=== PATIENT | female | born 1980 | race American Indian/Alaskan Native ===

== ENCOUNTER 2017-06-29 08:05 | Outpatient (CLI) | payer MEDICAID ==
--- NOTE | 2017-06-30 09:05 | Magnetic Resonance Report ---
MRI RIGHT KNEE WITHOUT CONTRAST: 06/29/17 CLINICAL: Right knee pain. ACL tear. TECHNIQUE: Sagittal proton density, sagittal T2 fat sat, coronal T1, coronal and axial proton density fat sat, sagittal gradient T2*sequences and sagittal T2 thin section millimeter thick sequences on a 1.5 Jenn magnet. FINDINGS: Complete tear of the anterior cruciate ligament. Fibers are visible at the anterior attachment but no posterior fibers are visible. The posterior cruciate ligament is intact. Complex tear and degeneration of the posterior horn of the lateral meniscus which is best imaged on the sagittal proton density and T2*sequences. Full-thickness defects in the lateral femoral cartilage and subchondral signal change in the lateral femoral condyle at the torn posterior horn of the meniscus. Additional subchondral defects and cartilage thinning at the anteromedial aspect of the lateral femoral condyle. The medial meniscus is intact. Intact collateral ligaments. The posterolateral corner structures including the popliteus tendon are intact. Chondromalacia of patellae with abnormal signal and thinning of the medial patellar cartilage. The patellar tendon and retinaculum are intact. Small knee joint effusion with no loose bodies identified in the joint space. No popliteal cyst. IMPRESSION: 1. Chronic complete ACL tear. 2. Chronic complex tear posterior horn lateral meniscus. 3. Cartilage thinning and osteochondral defects of the lateral femoral condyle. 4. Small knee joint effusion. 5. No loose bodies identified in the joint space. 6. Mild chondromalacia patellae.
== END 2017-06-29 08:06 | disposition home or self-care (01) ==
LOC: MRI 08:05
PROVIDERS: ATTEND General Practice
DX: S83.511A Sprain of anterior cruciate ligament of right knee, initial encounter (principal); S83.281A Other tear of lateral meniscus, current injury, right knee, initial encounter; M22.41 Chondromalacia patellae, right knee; X58.XXXA Exposure to other specified factors, initial encounter; Y93.89 Activity, other specified; Y92.89 Other specified places as the place of occurrence of the external cause; Y99.8 Other external cause status
CPT/HCPCS: 73721

== ENCOUNTER 2017-09-06 07:08 | Outpatient (CLI) | payer MEDICAID ==
--- NOTE | 2017-09-06 09:01 | Ultrasound Report ---
ULTRASOUND ABDOMEN COMPLETE: TECHNIQUE: Transabdominal ultrasound with color Doppler interrogation. HISTORY: abdominal pain. COMPARISON: none. FINDINGS: LIVER: Normal. BILIARY SYSTEM: Cholecystectomy has been performed. No biliary dilatation. The CBD measures 4 mm. PANCREAS: Normal. SPLEEN: Normal. 9.2 cm in length. KIDNEYS: Normal. AORTA/IVC: Normal. ASCITES: None. IMPRESSION: Cholecystectomy. Otherwise, unremarkable abdominal sonogram.
== END 2017-09-06 07:09 | disposition home or self-care (01) ==
LOC: US 07:08
PROVIDERS: ATTEND Surgery
DX: R10.84 Generalized abdominal pain (principal); Z90.49 Acquired absence of other specified parts of digestive tract
CPT/HCPCS: 76700

== ENCOUNTER 2017-12-08 11:00 | Emergency (ER) | payer MEDICAID ==
[2017-12-08] MEDS ORDERED: ASPIRIN PO ONE (11:27)
[2017-12-08 11:48] LABS: Basophils % (Auto) 0.3 % (0.0-1.8); Eosinophils # (Auto) 0.1 K/mm3 (0.0-0.4); Eosinophils % (Auto) 2.2 % (0.0-4.3); Hematocrit 26.9 % (30.3-42.9); Hemoglobin 8.4 gm/dl (10.1-14.3); Lymphocytes % (Auto) 32.9 % (13.4-35.0); Mean Corpuscular HGB Conc 31 % (30-34); Mean Corpuscular Hemoglobin 22 pg (28-32); Mean Corpuscular Volume 70 fl (79-97); Monocytes # (Auto) 0.5 K/mm3 (0.0-0.8); Monocytes % (Auto) 8.4 % (0.0-7.3); Platelet Count 371 K/mm3 (140-440); Red Blood Count 3.84 M/mm3 (3.65-5.03)
[2017-12-08 12:05] LABS: BUN/Creatinine Ratio 11; Blood Urea Nitrogen 9 mg/dL (7-17); Calcium 8.9 mg/dL (8.4-10.2); Hemolysis Index 2
--- NOTE | 2017-12-08 12:09 | Emergency Department Report ---
ED Chest Pain HPI - General Chief Complaint: Chest Pain Time Seen by Provider: 12/08/17 12:09 Source: patient Mode of arrival: Wheelchair Limitations: No Limitations - History of Present Illness Initial Comments: Patient c/o chest pain and shortness of breath after exercising on a treadmill for rehabilitation for her knee surgery. Complaint: chest pain -: Sudden, This morning Onset: during exertion Pain Location: substernal Pain Radiation: none Severity: moderate Severity scale (0 -10): 5 Quality: sharp Consistency: now resolved Improves With: rest Worsens With: movement Context: recent surgery re: dyspnea Treatments Prior to Arrival: none Aspirin use within the Past 7 Days: (0) No - Related Data On Oral Contraceptives: No Previous Rx's Medication Instructions Recorded Last Taken Type Docusate Sodium [Colace] 100 mg PO BID #60 capsule 12/08/17 Unknown Rx Ferrous Sulfate [Feosol 325 MG tab] 325 mg PO BID #60 tablet 12/08/17 Unknown Rx Allergies Allergy/AdvReac Type Severity Reaction Status Date / Time codeine Allergy Hives Unverified 06/29/17 08:06 Heart Score - HEART Score History: Slightly suspicious EKG: Normal Age: < 45 Risk factors: No known risk factors Troponin: < normal limit HEART Score: 0 - Critical Actions Critical Actions: 0-3 pts:0.9-1.7%risk of adverse cardiac event.Candidate for discharge ED Review of Systems ROS: Stated complaint: Other details as noted in HPI Comment: All other systems reviewed and negative Constitutional: denies: chills, fever Eyes: denies: eye pain ENT: denies: ear pain Respiratory: shortness of breath. denies: cough, orthopnea Cardiovascular: chest pain, palpitations, dyspnea on exertion Endocrine: no symptoms reported Gastrointestinal: denies: abdominal pain, nausea, vomiting, diarrhea Genitourinary: denies: urgency, dysuria, frequency Musculoskeletal: denies: back pain, joint swelling Skin: denies: rash, lesions, change in color Neurological: denies: headache, weakness, numbness, paresthesias Psychiatric: denies: anxiety, depression Hematological/Lymphatic: denies: easy bleeding, easy bruising ED Past Medical Hx - Past Medical History Hx Hypertension: No Hx CVA: No Hx Diabetes: No Hx Renal Disease: No Hx Arthritis: No Hx Seizures: No Hx Asthma: No - Surgical History Hx Pacemaker: No - Social History Smoking Status: Never Smoker - Medications Home Medications: Home Medications Medication Instructions Recorded Confirmed Last Taken Type Docusate Sodium [Colace] 100 mg PO BID #60 capsule 12/08/17 Unknown Rx Ferrous Sulfate [Feosol 325 MG tab] 325 mg PO BID #60 tablet 12/08/17 Unknown Rx ED Physical Exam - General Limitations: No Limitations General appearance: alert, anxious - Head Head exam: Present: atraumatic, normocephalic, normal inspection - Eye Eye exam: Present: PERRL, EOMI, other (Pale conjunctivae) Pupils: Present: normal accommodation - ENT ENT exam: Present: normal exam, normal orophraynx, mucous membranes moist - Neck Neck exam: Present: normal inspection, full ROM. Absent: tenderness - Respiratory Respiratory exam: Present: normal lung sounds bilaterally. Absent: respiratory distress, wheezes, rales, rhonchi - Cardiovascular Cardiovascular Exam: Present: regular rate, normal rhythm, normal heart sounds - GI/Abdominal GI/Abdominal exam: Present: soft, normal bowel sounds. Absent: distended, tenderness, guarding, rebound - Extremities Exam Extremities exam: Present: normal inspection, full ROM, normal capillary refill. Absent: tenderness - Back Exam Back exam: Present: normal inspection, full ROM. Absent: tenderness - Neurological Exam Neurological exam: Present: alert, oriented X3, CN II-XII intact - Psychiatric Psychiatric exam: Present: normal affect, normal mood, anxious - Skin Skin exam: Present: warm, dry, intact, normal color ED Course Vital Signs 12/08/17 12/08/17 12/08/17 11:05 11:16 11:17 Temperature 98.0 F Pulse Rate 79 79 71 Respiratory 16 19 18 Rate Blood Pressure 96/54 Blood Pressure 96/54 [Left] O2 Sat by Pulse 98 98 99 Oximetry 12/08/17 11:22 Temperature Pulse Rate Respiratory 18 Rate Blood Pressure Blood Pressure [Left] O2 Sat by Pulse 99 Oximetry ARON score - Aron Score Age > 65: (0) No Aspirin use within the Past 7 Days: (0) No 3 or more CAD Risk Factors: (0) No 2 or more Angina events in past 24 hrs: (0) No Known CAD with more than 50% Stenosis: (0) No Elevated Cardiac Markers: (0) No ST Deviation Greater than 0.5mm: (0) No ARON Score: 0 ED Medical Decision Making - Lab Data Result diagrams: 12/08/17 11:37 12/08/17 11:37 - EKG Data -: EKG Interpreted by Me EKG shows normal: sinus rhythm Rate: normal (79) - EKG Data When compared to previous EKG there are: previous EKG unavailable Interpretation: nonspecific ST-T wave veronique, other (No STEMI) - Radiology Data Radiology results: report reviewed, image reviewed - Medical Decision Making Chest Pain. Anxiety. Critical care attestation.: If time is entered above; I have spent that time in minutes in the direct care of this critically ill patient, excluding procedure time. ED Disposition Clinical Impression: Anxiety Iron deficiency anemia Qualifiers: Iron deficiency anemia type: unspecified iron deficiency Qualified Code(s): D50.9 - Iron deficiency anemia, unspecified Disposition: - TO HOME OR SELFCARE Is pt being admited?: No Does the pt Need Aspirin: No Condition: Stable Instructions: Iron Deficiency Anemia (ED), Anxiety (ED) Additional Instructions: Please follow up with your regular doctor tomorrow morning or with Dr Núñez. Return to the ED if your condition worsens. Prescriptions: Docusate Sodium [Colace] 100 mg PO BID #60 capsule Ferrous Sulfate [Feosol 325 MG tab] 325 mg PO BID #60 tablet Referrals: COLLIN GARCIA MD [Primary Care Provider] - 3-5 Days Time of Disposition: 16:43
[2017-12-08] MEDS ORDERED: NACL 0.9% 1000 ML 1,000 ML IV ONE (12:14)
[2017-12-08 12:33] LABS: INR 0.89 (0.87-1.13)
[2017-12-08 12:34] LABS: Partial Thromboplastin Time 29.5 Sec. (24.2-36.6)
--- NOTE | 2017-12-08 12:37 | XRay Report ---
AP CHEST: HISTORY: chest pain AP view of the chest demonstrates a normal mediastinal and cardiac contour with clear lungs and normal bony and soft tissue structures. IMPRESSION: Unremarkable AP chest.
[2017-12-08 12:48] LABS: Alanine Aminotransferase 10 units/L (7-56)
[2017-12-08 12:51] LABS: Bilirubin,Direct < 0.2 mg/dL (0-0.2)
[2017-12-08 12:56] LABS: Bilirubin,Urine NEG (Negative); Blood,Urine NEG (Negative); Color,Urine Yellow (Yellow); HCG Qualitative,Urine Negative (Negative); Hyaline Casts,Urine 1 /LPF; Mucus,Urine FEW /HPF; Protein,Urine <15 mg/dL mg/dL (Negative); Urobilinogen,Urine < 2.0 mg/dL (<2.0)
--- NOTE | 2017-12-08 15:55 | Cat Scan Report ---
FINAL REPORT EXAM: CT ANGIO CHEST HISTORY: chest pain TECHNIQUE: Enhanced CT of the chest at 1.25 mm axial intervals following a pulmonary embolism protocol. Coronal and sagittal imaging were also obtained. Coronal oblique MIP projections were obtained. Contrast: 100 ml of Omnipaque 350 given IV. PRIORS: None. FINDINGS: There is no evidence for pulmonary embolism in the main pulmonary artery, right and left pulmonary arteries or their major distributions. However, CT does not exclude distal pulmonary emboli. Otherwise, the lung parenchyma are expanded and clear with no evidence for parenchymal nodules, infiltrates, congestion, or pleural effusion. There is no evidence for mediastinal, hilar, or axillary adenopathy. Cardiovascular structures are within normal limits. No evidence for ventricular chamber enlargement is seen. Images through the lung bases include the upper abdomen which show no abnormalities of the visualized abdominal viscera. Bony structures demonstrate no focal abnormalities. IMPRESSION: No evidence for pulmonary embolism. Negative CT of the chest.
[2017-12-08 17:27] VITALS: BP 106/48
== END 2017-12-08 23:59 | disposition hospice, home (50) ==
LOC: PT 11:00 → ED 11:00 → PT 11:00 → ED 17:27
DX: F41.9 Anxiety disorder, unspecified (principal); D50.9 Iron deficiency anemia, unspecified; Z88.6 Allergy status to analgesic agent
CPT/HCPCS: 36415; 71045; 71275; 80048; 80074; 81001; 81025; 83880; 84484; 85025; 85379; 85610; 85730; 93005; 93010; 97110; 99285; J7030; Q9967

== ENCOUNTER 2022-03-16 11:22 | Emergency (ER) | payer MEDICAID ==
[2022-03-16 11:43] VITALS: BP 119/77
== END 2022-03-16 19:02 | disposition left against medical advice (07) ==
LOC: ED 11:22
DX: M79.676 Pain in unspecified toe(s) (principal); Z53.21 Procedure and treatment not carried out due to patient leaving prior to being seen by health care provider